=== PATIENT | male | born 1945 | race Caucasian/White ===

== ENCOUNTER 2023-02-13 10:52 | Outpatient (AMB) | payer BC, SELFPAY ==
--- NOTE | 2023-02-13 10:54 | A.OFFVIS_ITS ---
Intake Vital Signs 02/13/23 10:56 Height 5 ft 11 in Weight 190 lb 8 oz BMI 26.6 BP 142/84 H Blood Pressure Location Rt brachial Position Sitting Pulse 71 Pulse Source Pulse Oximeter Pulse Oximetry (%) 97 Oxygen Delivery Method Room Air Intake Visit Reasons: CKD/Confirmed Intake Note: Pt presents today in fup for CKD, no new complaints Allergies No Known Allergies Allergy (Verified 02/13/23 11:01) HPI HPI Comments History of Present Illness Details 77-year-old man with a medical history of coronary artery disease status post non-STEMI May 2011 with drug-eluting stent to LAD, chronic kidney disease, dyslipidemia, gout and chronic bronchitis. 1. CAD s/p [place] with NILDA to LAD in May 2 in [place] 2. Chronic bronchitis. 3. CKD - Baseline Cr of 1.2 4. Gout [facility] Social History (Updated 02/13/23 @ 11:05 by Madison Robles) Alcohol intake: current Patient Tobacco Use Status: Never used Tobacco Physical Exam Vital Signs: Last Vital Signs Pulse 71 02/13/23 10:56 BP 142/84 H 02/13/23 10:56 Pulse Ox 97 02/13/23 10:56 Oxygen Delivery Method Room Air 02/13/23 10:56 BMI result Body Mass Index 26.6 Results Reviewed Results Reviewed: Colonoscopy revealed numerous Tubulo villous adenoma Urine protein creatinine ratio 0.12 as of January 2023 Assessment & Plan Assessment & Plan (1) CKD (chronic kidney disease): Code(s): N18.9 - Chronic kidney disease, unspecified Plan: Bill has mild CKD. Renal function stable at baseline with a creatinine 1.2. Urine reviewed and no significant proteinuria. Goal is to slow the progression of renal disease. Continue to avoid nephrotoxic agents. He will benefit from an SGLT 2 inhibitor. (2) HTN (hypertension): Code(s): I10 - Essential (primary) hypertension Plan: Blood pressure is acceptable based on the home readings. The should stay on low-sodium diet. No changes are made to his antihypertensive regimen. Orders: Orders Blood Urea Nitrogen 6 Months N18.9 - Chronic kidney disease, unspecified Calcium 6 Months N18.9 - Chronic kidney disease, unspecified Electrolytes 6 Months N18.9 - Chronic kidney disease, unspecified Creatinine 6 Months N18.9 - Chronic kidney disease, unspecified Coding Level of Care Code Est Pt Level 4 (32142) Diagnoses CKD (chronic kidney disease) N18.9 HTN (hypertension) I10
[2023-02-13 10:56] VITALS: BP 142/84; PULSE 71; O2SAT 97; BMI 26.6
== END 2023-02-13 11:21 | disposition home or self-care (01) ==
LOC: HO.HKAS 10:52
PROVIDERS: Visit Provider Internal Medicine Hypertension Specialist
DX: I12.9 Hypertensive chronic kidney disease with stage 1 through stage 4 chronic kidney disease, or unspecified chronic kidney disease (principal); N18.2 Chronic kidney disease, stage 2 (mild); M10.30 Gout due to renal impairment, unspecified site
CPT/HCPCS: 99214

== ENCOUNTER → 2023-02-13 10:52 | Outpatient (BNVA) | payer BC, SELFPAY | PROVIDERS: Visit Provider Internal Medicine Hypertension Specialist ==

== ENCOUNTER 2023-08-14 11:10 | Outpatient (AMB) | payer BC, SELFPAY ==
[2023-08-14 11:11] VITALS: BP 152/88; PULSE 68; O2SAT 96; BMI 27.6
--- NOTE | 2023-08-14 11:11 | HO.NEPHOV ---
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 1. CAD s/p [place] NILDA to LAD in May 2011 in [place] 2. Chronic bronchitis. 3. CKD - Baseline Cr of 1.2 4. Gout PFSH Social History Alcohol intake: current Patient Tobacco Use Status: Never used Tobacco Physical Exam Vital Signs: Last Vital Signs Pulse 68 08/14/23 11:11 BP 152/88 H 08/14/23 11:11 Pulse Ox 96 08/14/23 11:11 Oxygen Delivery Method Room Air 08/14/23 11:11 BMI result Body Mass Index 27.6 Const General: comfortable Nutritional Appearance: well nourished Orientation/consciousness: patient oriented x3 HEENT Head: No normal to inspection Mouth: moist mucous membranes Neck Neck: Yes supple and Yes no JVD Resp Auscultation: clear to auscultation bilaterally, no rales and rub present Cardio Jugular venous distension: no JVD Palpation: no palpable S3 and no palpable S4 Heart sounds: no rubs GI Palpation (GI): Soft to palpation and nontender Percussion: No Fluid wave present General: Yes no CVA tenderness Back/Spine/Pelvis Back: no CVA tenderness Skin General skin exam: no rashes or lesions noted Neuro General: patient oriented x3 Extrem General: Yes no pedal edema and No clubbing Results Reviewed Nephrology Results: No Data to Display Assessment & Plan Assessment & Plan (1) CKD (chronic kidney disease): Code(s): N18.9 - Chronic kidney disease, unspecified Category: Medical Plan: 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 Goal is to slow the progression of renal disease. Continue to avoid nephrotoxic agents. He will benefit from an SGLT 2 inhibitor. Maintain BP < 130/80 Stay on low salt diet (2) HTN (hypertension): Code(s): I10 - Essential (primary) hypertension Category: Medical Plan: Blood pressure is acceptable based on the home readings. The should stay on low-sodium diet. No changes are made to his antihypertensive regimen. Orders: Orders Basic Metabolic Panel 5 Months I10 - Essential (primary) hypertension, N18.9 - Chronic kidney disease, unspecified Complete Blood Count Auto Diff 5 Months I10 - Essential (primary) hypertension, N18.30 - Chronic kidney disease, stage 3 unspecified, N18.9 - Chronic kidney disease, unspecified Sodium Urine Random 5 Months I10 - Essential (primary) hypertension, N18.9 - Chronic kidney disease, unspecified Creatinine Urine 5 Months I10 - Essential (primary) hypertension, N05.9 - Unspecified nephritic syndrome with unspecified morphologic changes, N18.9 - Chronic kidney disease, unspecified Coding Level of Care Code Est Pt Level 4 (11252) Diagnoses CKD (chronic kidney disease) N18.9 HTN (hypertension) I10
[2023-08-14 11:24] VITALS: BP 136/80
== END 2023-08-14 11:32 | disposition home or self-care (01) ==
PROVIDERS: Visit Provider Internal Medicine Hypertension Specialist
DX: I12.9 Hypertensive chronic kidney disease with stage 1 through stage 4 chronic kidney disease, or unspecified chronic kidney disease (principal); N18.9 Chronic kidney disease, unspecified
CPT/HCPCS: 99214

== ENCOUNTER → 2023-08-14 11:10 | Outpatient (BNVA) | payer BC, SELFPAY | PROVIDERS: Visit Provider Internal Medicine Hypertension Specialist | DX: N18.9 Chronic kidney disease, unspecified (principal) ==

== ENCOUNTER 2024-02-19 09:45 | Outpatient (AMB) | payer BC, SELFPAY ==
[2024-02-19 09:50] VITALS: BP 134/70; PULSE 59; O2SAT 95; BMI 25.7
--- NOTE | 2024-02-19 09:50 | HO.NEPHOV_ITS ---
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: No Accompanied by: Self / Same As Patient Allergies No Known Allergies Allergy (Verified 02/19/24 09:53) Medication List - Last Reconciled 02/19/24 by Howie Louis MD albuterol sulfate 90 mcg/actuation 1 inh inhalation QID allopurinol 100 mg PO DAILY aspirin 81 mg PO DAILY atorvastatin 20 mg PO DAILY fluticasone propion-salmeterol 250-50 mcg/dose (Wixela Inhub) 1 inh inhalation BID losartan 25 mg PO DAILY metoprolol succinate ER 50 mg PO DAILY HPI Comments Details: 77-year-old man with a medical history of coronary artery disease status post non-STEMI May 2011 with drug-eluting stent to LAD, chronic kidney disease, dyslipidemia, gout and chronic bronchitis. 1. [place]p [place] to LAD in May 2011 in [place] 2. Chronic bronchitis. 3. CKD - Baseline Cr of 1.2 4. Gout Overall doing good without any significant complaints. No urinary symptoms. No edema. [facility] Social History Alcohol intake: current Patient Tobacco Use Status: Never used Tobacco Physical Exam Vital Signs: Last Vital Signs Pulse 59 02/19/24 09:50 BP 134/70 02/19/24 09:50 Pulse Ox 95 02/19/24 09:50 Oxygen Delivery Method Room Air 02/19/24 09:50 BMI result Body Mass Index 25.7 Const General: comfortable Nutritional Appearance: well nourished Orientation/consciousness: patient oriented x3 HEENT Head: No normal to inspection Mouth: moist mucous membranes Neck Neck: Yes supple and Yes no JVD Resp Auscultation: clear to auscultation bilaterally, no rales and rub present Cardio Jugular venous distension: no JVD Palpation: no palpable S3 and no palpable S4 Heart sounds: no rubs GI Palpation (GI): Soft to palpation and nontender Percussion: No Fluid wave present General: Yes no CVA tenderness Back/Spine/Pelvis Back: no CVA tenderness Skin General skin exam: no rashes or lesions noted Neuro General: patient oriented x3 Extrem General: Yes no pedal edema and No clubbing Results Reviewed Results Reviewed: 01/19/2024 Creatinine 1.34 Nephrology Results: No Data to Display Assessment & Plan Assessment & Plan (1) CKD (chronic kidney disease): Code(s): N18.9 - Chronic kidney disease, unspecified Category: Medical Plan: 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 Goal is to slow the progression of renal disease. Continue to avoid nephrotoxic agents. He will benefit from an SGLT 2 inhibitor. Maintain BP < 130/80 Stay on low salt diet (2) HTN (hypertension): Code(s): I10 - Essential (primary) hypertension Category: Medical Plan: Blood pressure is acceptable based on the home readings. The should stay on low-sodium diet. No changes are made to his antihypertensive regimen. Orders: Orders Basic Metabolic Panel 9 Months I10 - Essential (primary) hypertension, N18.9 - Chronic kidney disease, unspecified Complete Blood Count no Diff 9 Months I10 - Essential (primary) hypertension, N18.9 - Chronic kidney disease, unspecified Uric Acid 9 Months I10 - Essential (primary) hypertension, N18.9 - Chronic kidney disease, unspecified UA and rflx microscopic 9 Months I10 - Essential (primary) hypertension, N18.9 - Chronic kidney disease, unspecified Medications: New allopurinol 100 mg PO DAILY 90 tabs 3RF Coding Level of Care Code Est Pt Level 4 (80035) Diagnoses CKD (chronic kidney disease) N18.9 HTN (hypertension) I10
== END 2024-02-19 10:04 | disposition home or self-care (01) ==
PROVIDERS: Visit Provider Internal Medicine Hypertension Specialist
DX: I12.9 Hypertensive chronic kidney disease with stage 1 through stage 4 chronic kidney disease, or unspecified chronic kidney disease (principal); N18.2 Chronic kidney disease, stage 2 (mild)
CPT/HCPCS: 99214

== ENCOUNTER 2024-09-09 10:39 | Outpatient (AMB) | payer BC, SELFPAY ==
[2024-09-09 10:41] VITALS: BP 128/80; PULSE 65; O2SAT 94; BMI 25.7
--- NOTE | 2024-09-09 10:41 | HO.NEPHOV_ITS ---
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 Required: No Accompanied by: Self / Same As Patient Allergies No Known Allergies Allergy (Verified 09/09/24 10:43) Medication List - Last Reconciled 09/09/24 by Howie Louis MD albuterol sulfate 90 mcg/actuation 1 inh inhalation QID allopurinol 100 mg PO DAILY aspirin 81 mg PO DAILY atorvastatin 20 mg PO DAILY dapagliflozin propanediol 5 mg PO DAILY fluticasone propion-salmeterol 250-50 mcg/dose (Wixela Inhub) 1 inh inhalation BID losartan 25 mg PO DAILY metoprolol succinate ER 50 mg PO DAILY HPI Comments Details: 77-year-old man with a medical history of coronary artery disease status post non-STEMI May 2011 with drug-eluting stent to LAD, chronic kidney disease, dyslipidemia, gout and chronic bronchitis. 1. CAD s[place]p [place] to LAD in May 2011 in [place] 2. Chronic bronchitis. 3. CKD - Baseline Cr of 1.2 4. Gout Overall doing good without any significant complaints. No urinary symptoms. No edema. 09/09/24 79-year-old male presenting with a follow-up consultation for chronic kidney disease management. His renal function shows improvement, increasing from 54% to 58% over six months. He also has Type 2 Diabetes Mellitus with recent medication adjustment adding Farxiga to enhance glycemic control and offer renal benefits. In addition, the patient has COPD and noted an increase in coughing due to inhaler use, which he intends to address with his [place] doctor this coming January. His medication regimen includes Allopurinol for gout and Losartan for hypertension, with apparent good compliance and satisfactory outcomes. The patient has decreased alcohol intake, limiting himself to one drink per week, There are no reported issues with urination despite a noted increase in frequency explained by his medication/Farxiga. [facility] Social History Alcohol intake: current Patient Tobacco Use Status: Never used Tobacco Physical Exam Vital Signs: Last Vital Signs Pulse 65 09/09/24 10:41 BP 128/80 09/09/24 10:41 Pulse Ox 94 09/09/24 10:41 Oxygen Delivery Method Room Air 09/09/24 10:41 BMI result Body Mass Index 25.7 Const General: comfortable Nutritional Appearance: well nourished Orientation/consciousness: patient oriented x3 HEENT Head: No normal to inspection Mouth: moist mucous membranes Neck Neck: Yes supple and Yes no JVD Resp Auscultation: clear to auscultation bilaterally, no rales and rub present Cardio Jugular venous distension: no JVD Palpation: no palpable S3 and no palpable S4 Heart sounds: no rubs GI Palpation (GI): Soft to palpation and nontender Percussion: No Fluid wave present General: Yes no CVA tenderness Back/Spine/Pelvis Back: no CVA tenderness Skin General skin exam: no rashes or lesions noted Neuro General: patient oriented x3 Extrem General: Yes no pedal edema and No clubbing Results Reviewed Results Reviewed: July 2024 BUN 17 Cr 1.27 Nephrology Results: No Data to Display Assessment & Plan Assessment & Plan (1) CKD (chronic kidney disease): Code(s): N18.9 - Chronic kidney disease, unspecified Category: Medical Plan: 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 Goal is to slow the progression of renal disease. Continue to avoid nephrotoxic agents. Agree with SGLT 2 inhibitor. Maintain BP < 130/80 Stay on low salt diet (2) HTN (hypertension): Code(s): I10 - Essential (primary) hypertension Category: Medical Plan: Blood pressure is acceptable based on the home readings. The should stay on low-sodium diet. No changes are made to his antihypertensive regimen. Orders: Orders Basic Metabolic Panel 6 Months N18.9 - Chronic kidney disease, unspecified Coding Level of Care Code Est Pt Level 4 (67618) Diagnoses CKD (chronic kidney disease) N18.9 HTN (hypertension) I10
--- OUTSIDE RECORDS SUMMARY | 2024-09-09 12:07 | XMS_ITS | Continuity of Care Document ---
Author Name [facility] Organization [facility] Care Team Providers Care Therapeutic Program Worker Name Role Phone [facility] Unavailable Unavailable Problems Combined list of problems from Department of Defense and Veterans Affairs facilities. It does not include entries that were removed or entered in error. 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 [facility] Diagnosis: ICD-10-CM H40.013 Open angle with borderline findings, low risk, bilateral Active Diagnosis [facility] Diagnosis: ICD-10-CM E11.9 Type 2 diabetes mellitus without complications Active Diagnosis [facility] Diagnosis: ICD-10-CM J18.9 Pneumonia, unspecified organism Active Diagnosis [facility] Diagnosis: ICD-10-CM K63.5 Polyp of colon Active Diagnosis [facility] Medications Combined list of outpatient medications from Department of Defense and Veterans Affairs facilities.Medications provided include 1) outpatient medications from the last 15 months, and 2) patient-reported medications. Medication Details Route Status Patient Instructions Prescription Expires Prescription Number Last Dispense Date Ordering Provider Order Date Order Qty Source ALBUTEROL 90MCG/ACTUA T (CFC-F) INHL,ORAL,8 .5GM DOSE COUNTER INHALE 2 PUFFS BY MOUTH FOUR TIMES A DAY RESPIR ATORY (INHAL ATION) ACTIVE 02/18/2025 [id number] MERNA JACOME 2023 1 [facility] ALLOPURINOL 100MG TAB TAKE ONE TABLET BY MOUTH ONCE DAILY FOR GOUT ORAL 02/19/2024 [id number] 4 MERNA JACOME 2022 90 [facility] ASPIRIN 81MG TAB,EC TAKE ONE TABLET BY MOUTH DAILY ORAL ACTIVE MERNA JACOME 2013 [facility] ATORVASTATI N CA 80MG TAB TAKE ONE TABLET BY MOUTH DAILY ORAL ACTIVE [place] FOST[place] 2013 [facility] CODEINE 10MG/GUAIFE NESIN 100MG/5ML (SF & AF) LIQUID TAKE 5 ML (1 TEASPOON FUL) BY MOUTH EVERY 6 HOURS NEEDED FOR COUGH ORAL 06/11/2024 [id number] LEVY MONDRAGON 2024 236 [facility] DOXYCYCLINE HYCLATE 100MG TAB TAKE ONE TABLET BY MOUTH TWICE DAILY ORAL 06/11/2024 [id number] LEVY MONDRAGON 2024 20 [facility] FLUTICASONE 250MCG/SALM ETEROL 50MCG INHL,ORAL,D ISKUS,60 INHALE 1 PUFF BY MOUTH TWICE DAILY - RINSE MOUTH AFTER USE (DOSE ADJUSTME NT MAY BE NEEDED IF YOU DEVELOP WORSENIN G BREATHIN G SYMPTOMS . CONTACT YOUR PROVIDER ) RESPIR ATORY (INHAL ATION) ACTIVE 02/18/2025 [id number] MERNA JACOME 2023 3 [facility] FLUTICASONE 250MCG/SALM ETEROL 50MCG INHL,ORAL,D ISKUS,60 INHALE 1 PUFF BY MOUTH TWICE DAILY - RINSE MOUTH AFTER USE (DOSE ADJUSTME NT MAY BE NEEDED IF YOU DEVELOP WORSENIN G BREATHIN G SYMPTOMS . CONTACT YOUR PROVIDER ) [facility] [id number] NAAMERNA Uriel 2023 3 [facility] FLUTICASONE 250MCG/SALM ETEROL 50MCG INHL,ORAL,D ISKUS,60 INHALE 1 PUFF BY MOUTH TWICE DAILY - RINSE MOUTH AFTER USE (REPLACE S SYMBICOR T INHALER. DOSE ADJUSTME NT MAY BE NEEDED IF YOU DEVELOP WORSENIN G BREATHIN G SYMPTOMS . CONTACT YOUR PROVIDER ) RESPIR AT[facility]) [facility] 02/19[facility]2024 [id number] NAAMERNA Uriel 2022 3 [facility] LOSARTAN 25MG TAB TAKE ONE TABLET BY MOUTH ONCE DAILY ORAL ACTIVE [facility]NA JACOME 2018 [facility] METOPROLOL TARTRATE 50MG TAB TAKE ONE TABLET BY MOUTH ONCE DAILY ORAL ACTIVE MERNA JACOME 2021 [facility] NITROGLYCER IN 0.4MG TAB,SUBLING UAL DISSOLVE ONE TABLET UNDER THE TONGUE EVERY 5 MINUTES NEEDED SUBLIN GUAL ACTIVE RA[place]B,[place]B [place] 2013 [facility] Immunizations Combined list of available immunizations from the Department of Defense and Veterans Affairs facilities. Immunization Series Date Given Administered By Site Reaction Lot Number CVX Code Drug Public Records Officer Status Comments Source INFLUENZA, HIGH-DOSE, TRIVALENT, PF 2023 WONG MERAZ RIGHT DELTO ID [id number] 135 complet ed Completed Series, [facility] INFLUENZA, UNSPECIFIED FORMULATION 2022 88 complet ed Booster for Series, HISTORICA L INFORMATI ON - FROM OTHER PROVIDER, [facility] COVID-19 (MODERNA), MRNA, LNP-S, BIVALENT BOOSTER, PF, 50 MCG/0.5 ML OR 25MCG/0.25 ML DOSE 1 2021 MURPHY SHIELDS LEFT DELTO ID [id number] 229 complet ed ADMINISTE RED AT HI, [facility] INFLUENZA VACCINE, QUADRIVALENT, ADJUVANTED 2021 205 complet ed [facility] INFLUENZA VACCINE, QUADRIVALENT, ADJUVANTED 2020 205 complet ed [facility] ZOSTER RECOMBINANT 2 2020 187 complet ed [facility] ZOSTER RECOMBINANT 1 2020 187 complet ed [facility] COVID-19 (DARYN), VECTOR-NR, [id number], PF, 0.5 ML 1 2020 212 complet ed [facility] INFLUENZA, SEASONAL, INJECTABLE 2018 141 complet ed cVS [facility] INFLUENZA, SEASONAL, INJECTABLE 2018 141 complet ed [facility] PNEUMOCOCCAL POLYSACCHARID E PPV23 2017 33 complet ed [facility] INFLUENZA, SEASONAL, INJECTABLE 2016 141 complet ed CVS FLA [facility] PNEUMOCOCCAL CONJUGATE PCV 13 2016 133 complet ed [facility] TDAP 2016 115 complet ed Site: Left Deltoid [facility] FLU,3 YRS (HISTORICAL) 2016 88 complet ed [facility] ZOSTER (HISTORICAL) 2016 121 complet ed [facility] FLU,3 YRS (HISTORICAL) 2014 88 complet ed Site: Right Deltoid [facility] FLU,3 YRS (HISTORICAL) 2012 88 complet ed [facility] Results Combined list of recent chemistry, hematology and other laboratory results from Department of Defense and Veterans Affairs, ranging from 15 months to all on record, depending upon the facility. Order Name Results Value Reference Range Date Interpretation Specimen Comments Source COVID-19 FLU/RSV DIAGNOST IC PANEL SARS-COV-2 (COVID-19) RNA [PRESENCE] IN RESPIRATOR Y SYSTEM SPECIMEN BY OTTO WITH PROBE DETECTION NEGATIVE 05/12 Specimen Type: NASOPHARYNX Comment: This test is authorized for emergency use only. False negative results may occur if virus is present at levels below the analytical limit of detection.N egative results do not preclude SARS-CoV-2, influenza or RSV infection and should not be used as the sole basis for treatment or other patient management decisions.C epheid FLUVID: HCPs: https://www .fda.gov/me tahmina/702048/ download. Patients: https://www .fda.gov/me tahmina/246000/ download Ordering Provider: JORDYN MONDRAGON Report Released Date/Time: May 12, 2024 10:04 AM Reporting Lab: [address] [address] Performing Lab: [address] [address] [facility] COVID-19 FLU/RSV DIAGNOST IC PANEL FLU A PCR (FLUVID) NEGATIVE 05/12 Specimen Type: NASOPHARYNX Comment: This test is authorized for emergency use only. False negative results may occur if virus is present at levels below the analytical limit of detection.N egative results do not preclude SARS-CoV-2, influenza or RSV infection and should not be used as the sole basis for treatment or other patient management decisions.C epheid FLUVID: HCPs: https://www .fda.gov/me tahmina/541005/ download. Patients: https://www .fda.gov/me tahmina/924331/ download Ordering Provider: JORDYN MONDRAGON Report Released Date/Time: May 12, 2024 10:04 AM Reporting Lab: [facility] [address] [facility] [address] Performing Lab: [address] [address] [facility] COVID-19 FLU/RSV DIAGNOST IC PANEL FLU B PCR (FLUVID) NEGATIVE 05/12 Specimen Type: NASOPHARYNX Comment: This test is authorized for emergency use only. False negative results may occur if virus is present at levels below the analytical limit of detection.N egative results do not preclude SARS-CoV-2, influenza or RSV infection and should not be used as the sole basis for treatment or other patient management decisions.C epheid FLUVID: HCPs: https://www .fda.gov/dc tahmina/210559/ download. Patients: https://www .fda.gov/dc tahmina/203614/ download Ordering Provider: JORDYN MONDRAGON Report Released Date/Time: May 12, 2024 10:04 AM Reporting Lab: [address] [address] Performing Lab: [address] [address] [facility] COVID-19 FLU/RSV DIAGNOST IC PANEL RSV PCR (FLUVID) NEGATIVE 05/12 Specimen Type: NASOPHARYNX Comment: This test is authorized for emergency use only. False negative results may occur if virus is present at levels below the analytical limit of detection.N egative results do not preclude SARS-CoV-2, influenza or RSV infection and should not be used as the sole basis for treatment or other patient management decisions.C epheid FLUVID: HCPs: https://www .fda.gov/me tahmina/667195/ download. Patients: https://www .fda.gov/dc tahmina/387167/ download Ordering Provider: JORDYN MONDRAGON Report Released Date/Time: May 12, 2024 10:04 AM Reporting Lab: [address] [address] Performing Lab: [facility] [address] [address] [facility] MICROALB UMIN CREATINI NE RATIO PANEL MICROALBUM IN/CREATIN INE [MASS RATIO] IN URINE cancmg/g 0 - 29.9 02/12 Specimen Type: URINE No comment entered. Ordering Provider: Meir JACOME Report Released Date/Time: Feb 18, 2023 10:44 AM Reporting Lab: [facility] [address] [facility] [address] Performing Lab: [facility] [place] [facility] [address] [facility] [address] [facility] MICROALB UMIN CREATINI NE RATIO PANEL MICROALBUM IN [MASS/VOLU ME] IN URINE < 0.5mg/dL 02/12 Specimen Type: URINE No comment entered. Ordering Provider: Meir JACOME Report Released Date/Time: Feb 18, 2023 10:44 AM Reporting Lab: [facility] [address] [facility] [address] Performing Lab: [facility] [address] [facility] [address] [facility] MICROALB UMIN CREATINI NE RATIO PANEL CREATININE [MASS/VOLU ME] IN URINE 70.93 mg/dL 02/12 Specimen Type: URINE No comment entered. Ordering Provider: Meir JACOME Report Released Date/Time: Feb 18, 2023 10:44 AM Reporting Lab: [facility] [address] [facility] [address] Performing Lab: [facility] [facility] [address] [address] [facility] BASIC METABOLI C PANEL (fasting ) UREA NITROGEN [MASS/VOLU ME] IN SERUM OR PLASMA 22 mg/dL 7 - 25 02/12 Specimen Type: SERUM No comment entered. Ordering Provider: Meir JACOME Report Released Date/Time: Feb 18, 2023 10:44 AM Reporting Lab: [facility] [address] [facility] [facility] [address] Performing Lab: [facility] [facility] [address] [facility] [address] [facility] BASIC METABOLI C PANEL (fasting ) GLUCOSE [MASS/VOLU ME] IN SERUM OR PLASMA 144 mg/dL 65 - 100 02/12 H Specimen Type: SERUM No comment entered. Ordering Provider: Meir JACOME Report Released Date/Time: Feb 18, 2023 10:44 AM Reporting Lab: [facility] [address] [facility] [facility] [address] Performing Lab: [facility] [address] [facility] [address] [facility] BASIC METABOLI C PANEL (fasting ) SODIUM [MOLES/VOL UME] IN SERUM OR PLASMA 139 mmol/L 135 - 145 02/12 Specimen Type: SERUM No comment entered. Ordering Provider: Meir JACOME Report Released Date/Time: Feb 18, 2023 10:44 AM Reporting Lab: [facility] [address] [facility] [facility] [address] Performing Lab: [facility] [facility] [address] [facility] [address] [facility] BASIC METABOLI C PANEL (fasting ) POTASSIUM [MOLES/VOL UME] IN SERUM OR PLASMA 4.9 mmol/L 3.5 - 5.0 02/12 Specimen Type: SERUM No comment entered. Ordering Provider: Meir JACOME Report Released Date/Time: Feb 18, 2023 10:44 AM Reporting Lab: [facility] [facility] [address] [facility] [address] Performing Lab: [facility] [place] [facility] [address] [facility] [facility] [address] [facility] BASIC METABOLI C PANEL (fasting ) CHLORIDE [MOLES/VOL UME] IN SERUM OR PLASMA 103 mmol/L 100 - 110 02/12 Specimen Type: SERUM No comment entered. Ordering Provider: Meir JACOME Report Released Date/Time: Feb 18, 2023 10:44 AM Reporting Lab: [facility] [address] Performing Lab: [facility]TRN [facility] [address] [facility] BASIC METABOLI C PANEL (fasting ) CARBON DIOXIDE, TOTAL [MOLES/VOL UME] IN SERUM OR PLASMA 26 meq/L 20 - 30 02/12 Specimen Type: SERUM No comment entered. Ordering Provider: Meir JACOME Report Released Date/Time: Feb 18, 2023 10:44 AM Reporting Lab: [facility]ITALN [address] [address] Performing Lab: [facility]TRN [facility]USE[address] [address] [facility] BASIC METABOLI C PANEL (fasting ) CREATININE [MASS/VOLU ME] IN SERUM OR PLASMA 1.38 mg/dL 0.50 - 1.40 02/12 Specimen Type: SERUM No comment entered. Ordering Provider: Meir JACOME Report Released Date/Time: Feb 18, 2023 10:44 AM Reporting Lab: [facility] TRN [facility] [address] Performing Lab: [facility] TRN [facility] [address] [facility]N [facility] BASIC METABOLI C PANEL (fasting ) GLOMERULAR FILTRATION RATE/1.73 SQ M.PREDICTE D [VOLUME RATE/AREA] IN SERUM, PLASMA OR BLOOD BY CREATININE -BASED FORMULA (CKD-EPI 2020) 52 mL/min 60 02/12 L Specimen Type: SERUM No comment entered. Ordering Provider: Meir JACOME Report Released Date/Time: Feb 18, 2023 10:44 AM Reporting Lab: [facility] [address] [facility] [address] Performing Lab: [facility] [address] [facility] [address] [facility] LIVER FUNCTION PROTEIN [MASS/VOLU ME] IN SERUM OR PLASMA 6.8 g/dL 6.0 - 8.3 02/12 Specimen Type: SERUM No comment entered. Ordering Provider: Meir JACOME Report Released Date/Time: Feb 18, 2023 10:44 AM Reporting Lab: [facility] [address] [facility] [address] Performing Lab: [facility] [place] [facility] [address] [facility] [address] [facility] LIVER FUNCTION ALBUMIN [MASS/VOLU ME] IN SERUM OR PLASMA 3.8 g/dL 3.5 - 5.0 02/12 Specimen Type: SERUM No comment entered. Ordering Provider: Meir JACOME Report Released Date/Time: Feb 18, 2023 10:44 AM Reporting Lab: [facility] [address] [facility] [address] Performing Lab: [facility] [place] [facility] [address] [facility] [address] [facility] LIVER FUNCTION ALKALINE PHOSPHATAS E [ENZYMATIC ACTIVITY/V OLUME] IN SERUM OR PLASMA 63 U/L 40 - 150 02/12 Specimen Type: SERUM No comment entered. Ordering Provider: Meir JACOME Report Released Date/Time: Feb 18, 2023 10:44 AM Reporting Lab: [facility] [address] [facility] [address] Performing Lab: [facility] [address] [facility] [address] [facility] LIVER FUNCTION ASPARTATE AMINOTRANS FERASE [ENZYMATIC ACTIVITY/V OLUME] IN SERUM OR PLASMA 18 U/L 5 - 34 02/12 Specimen Type: SERUM No comment entered. Ordering Provider: Meir JACOME Report Released Date/Time: Feb 18, 2023 10:44 AM Reporting Lab: [facility] [place] [facility] [address] [facility] [address] Performing Lab: [facility] [facility] [address] [facility] [address] [facility] LIVER FUNCTION ALANINE AMINOTRANS FERASE [ENZYMATIC ACTIVITY/V OLUME] IN SERUM OR PLASMA 22 U/L 02/12 Specimen Type: SERUM No comment entered. Ordering Provider: Meir JACOME Report Released Date/Time: Feb 18, 2023 10:44 AM Reporting Lab: [facility] [address] [address] Performing Lab: [facility] [place] [facility] [address] [facility] [address] [facility] LIVER FUNCTION BILIRUBIN. TOTAL [MASS/VOLU ME] IN SERUM OR PLASMA 0.8 mg/dL 0.2 - 1.2 02/12 Specimen Type: SERUM No comment entered. Ordering Provider: Meir JACOME Report Released Date/Time: Feb 18, 2023 10:44 AM Reporting Lab: [facility] [address] [address] Performing Lab: [facility] [place] [facility] [address] [facility] [address] [facility] LIPID PANEL FASTING CHOLESTERO L [MASS/VOLU ME] IN SERUM OR PLASMA 127 mg/dL 02/12 Specimen Type: SERUM No comment entered. Ordering Provider: Meir JACOME Report Released Date/Time: Feb 18, 2023 10:44 AM Reporting Lab: [facility] [place] [facility] [address] [facility] [address] Performing Lab: [facility] [place] [facility] [address] [facility] [address] [facility] LIPID PANEL FASTING TRIGLYCERI DE [MASS/VOLU ME] IN SERUM OR PLASMA 99 mg/dL 0 - 150 02/12 Specimen Type: SERUM No comment entered. Ordering Provider: Meir JACOME Report Released Date/Time: Feb 18, 2023 10:44 AM Reporting Lab: [facility] [place] [facility] [address] [facility] [address] Performing Lab: [facility] [place] [facility] [address] [facility] [address] [facility] LIPID PANEL FASTING CHOLESTERO L IN LDL [MASS/VOLU ME] IN SERUM OR PLASMA BY CALCULATIO N 65 mg/dL 0 - 129 02/12 Specimen Type: SERUM No comment entered. Ordering Provider: Meir JACOME Report Released Date/Time: Feb 18, 2023 10:44 AM Reporting Lab: [facility] [place] [facility] [address] [facility] [address] Performing Lab: [facility] [place] [facility] [address] [facility] [address] [facility] LIPID PANEL FASTING CHOLESTERO L.TOTAL/CH OLESTEROL IN HDL [MASS RATIO] IN SERUM OR PLASMA 3.0 02/12 Specimen Type: SERUM No comment entered. Ordering Provider: Meir JACOME Report Released Date/Time: Feb 18, 2023 10:44 AM Reporting Lab: [facility] [place] [facility] [address] [facility] [address] Performing Lab: [facility] [place] [facility] [address] [facility] [address] [facility] LIPID PANEL FASTING CHOLESTERO L IN HDL [MASS/VOLU ME] IN SERUM OR PLASMA 42 mg/dL 40 - 60 02/12 Specimen Type: SERUM No comment entered. Ordering Provider: Meir JACOME Report Released Date/Time: Feb 18, 2023 10:44 AM Reporting Lab: [facility] [place] [facility] [address] [facility] [address] Performing Lab: [facility] CNTRPRINCETON B[facility]IST [facility]ENTERTRN [facility]PITALUSETS [facility] [address] [facility] [address] [facility] HEMOGLOB IN A1C PANEL HEMOGLOBIN A1C/HEMOGL OBIN.TOTAL IN BLOOD BY HPLC 6.5 4.0 - 5.6 02/12 H Specimen Type: BLOOD Comment: Values obtained from A1C measurement s can vary. For atypical A1C assays, a reported value of 7.0 could actually be between 6.72 and 7.28 if measured by a reference method. A reported value of 9.0 could actually be between 8.73 and 9.27. Ref: http://www. ngsp.org/[place] Pdata.asp Ordering Provider: Meir JACOME Report Released Date/Time: Feb 18, 2023 10:44 AM Reporting Lab: [facility]ITALRST[facility]ITALN [facility] [address] Performing Lab: [facility]ITALRPRINCETON [facility]ENTERTRN [facility]USE[address] [address] [facility]ITALUSE [facility] HEMOGLOB IN A1C PANEL HEMOGLOBIN A1C/HEMOGL OBIN.TOTAL IN BLOOD BY HPLC 6.9 4.0 - 5.6 05/15 H Specimen Type: BLOOD Comment: Values obtained from A1C measurement s can vary. For atypical A1C assays, a reported value of 7.0 could actually be between 6.72 and 7.28 if measured by a reference method. A reported value of 9.0 could actually be between 8.73 and 9.27. Ref: http://www. ngsp.org/[place] Pdata.asp Ordering Provider: Meir JACOME Report Released Date/Time: Feb 18, 2023 10:44 AM Reporting Lab: [facility]ITALRPRINCETON B[facility]ENTERTRN [facility] [address] [facility] [address] Performing Lab: [facility]ITALRPRINCETON [facility] CENTERTRN [facility]USE[address] [address] [facility]ITALRST[facility] VINCENT'[facility]OSPITALN [facility]ITALUSE [facility] LIVER FUNCTION PROTEIN [MASS/VOLU ME] IN SERUM OR PLASMA 7.2 g/dL 6.0 - 8.3 05/15 Specimen Type: SERUM No comment entered. Ordering Provider: Meir JACOME Report Released Date/Time: Feb 18, 2023 10:44 AM Reporting Lab: [facility] [place] [facility] [address] [facility] [address] Performing Lab: [facility] [place] [facility] [address] [facility] [address] [facility] [place] [facility] LIVER FUNCTION ALBUMIN [MASS/VOLU ME] IN SERUM OR PLASMA 3.9 g/dL 3.5 - 5.0 05/15 Specimen Type: SERUM No comment entered. Ordering Provider: Meir JACOME Report Released Date/Time: Feb 18, 2023 10:44 AM Reporting Lab: [facility] [place] [address] [address] Performing Lab: [facility] [place] [facility] [address] [facility] [address] [facility] [place] [facility] LIVER FUNCTION ALKALINE PHOSPHATAS E [ENZYMATIC ACTIVITY/V OLUME] IN SERUM OR PLASMA 67 U/L 40 - 150 05/15 Specimen Type: SERUM No comment entered. Ordering Provider: Meir JACOME Report Released Date/Time: Feb 18, 2023 10:44 AM Reporting Lab: [facility] [place] [address] [address] Performing Lab: [facility] [place] [facility] [address] [facility] [address] [facility] [place] [facility] LIVER FUNCTION ASPARTATE AMINOTRANS FERASE [ENZYMATIC ACTIVITY/V OLUME] IN SERUM OR PLASMA 17 U/L 5 - 34 05/15 Specimen Type: SERUM No comment entered. Ordering Provider: Meir JACOME Report Released Date/Time: Feb 18, 2023 10:44 AM Reporting Lab: [facility] [place] [address] [address] Performing Lab: [facility] [place] [address] [address] [facility] [place] [facility] LIVER FUNCTION ALANINE AMINOTRANS FERASE [ENZYMATIC ACTIVITY/V OLUME] IN SERUM OR PLASMA 22 U/L 05/15 Specimen Type: SERUM No comment entered. Ordering Provider: Meir JACOME Report Released Date/Time: Feb 18, 2023 10:44 AM Reporting Lab: [facility] [place] [facility] [address] [facility] [address] Performing Lab: [facility] [place] [facility] [address] [address] [facility] [place] [facility] LIVER FUNCTION BILIRUBIN. TOTAL [MASS/VOLU ME] IN SERUM OR PLASMA 0.9 mg/dL 0.2 - 1.2 05/15 Specimen Type: SERUM No comment entered. Ordering Provider: Meir JACOME Report Released Date/Time: Feb 18, 2023 10:44 AM Reporting Lab: [facility] [place] [facility] [address] [facility] [address] Performing Lab: [facility] [place] [facility] [address] [facility] [address] [facility] [place] [facility] BASIC METABOLI C PANEL (fasting ) UREA NITROGEN [MASS/VOLU ME] IN SERUM OR PLASMA 22 mg/dL 7 - 25 05/15 Specimen Type: SERUM No comment entered. Ordering Provider: Meir JACOME Report Released Date/Time: Feb 18, 2023 10:44 AM Reporting Lab: [facility] [place] [facility] [address] [facility] [address] Performing Lab: [facility] [place] [facility] [address] [facility] [address] [facility] [place] [facility] BASIC METABOLI C PANEL (fasting ) GLUCOSE [MASS/VOLU ME] IN SERUM OR PLASMA 159 mg/dL 65 - 100 05/15 H Specimen Type: SERUM No comment entered. Ordering Provider: Meir JACOME Report Released Date/Time: Feb 18, 2023 10:44 AM Reporting Lab: [facility] [place] [facility] [address] [address] Performing Lab: [facility] [place] [facility] [address] [facility] [address] [facility] [place] [facility] BASIC METABOLI C PANEL (fasting ) SODIUM [MOLES/VOL UME] IN SERUM OR PLASMA 139 mmol/L 135 - 145 05/15 Specimen Type: SERUM No comment entered. Ordering Provider: Meir JACOME Report Released Date/Time: Feb 18, 2023 10:44 AM Reporting Lab: [facility] [place] [facility] [address] [facility] [address] Performing Lab: [facility] [place] [facility] [address] [facility] [address] [facility] [place] [facility] BASIC METABOLI C PANEL (fasting ) POTASSIUM [MOLES/VOL UME] IN SERUM OR PLASMA 4.6 mmol/L 3.5 - 5.0 05/15 Specimen Type: SERUM No comment entered. Ordering Provider: Meir JACOME Report Released Date/Time: Feb 18, 2023 10:44 AM Reporting Lab: [facility] [place] [facility] [address] [address] Performing Lab: [facility] [place] [facility] [address] [facility] [address] [facility] [place] [facility] BASIC METABOLI C PANEL (fasting ) CHLORIDE [MOLES/VOL UME] IN SERUM OR PLASMA 103 mmol/L 100 - 110 05/15 Specimen Type: SERUM No comment entered. Ordering Provider: Meir JACOME Report Released Date/Time: Feb 18, 2023 10:44 AM Reporting Lab: [facility] [place] [facility] [address] [address] Performing Lab: [facility] [place] [facility] [address] [facility] [address] [facility] [place] [facility] BASIC METABOLI C PANEL (fasting ) CARBON DIOXIDE, TOTAL [MOLES/VOL UME] IN SERUM OR PLASMA 28 meq/L 20 - 30 02/14 /2024 Specimen Type: SERUM No comment entered. Ordering Provider: Meir JACOME Report Released Date/Time: Feb 18, 2023 10:44 AM Reporting Lab: [facility] [place] [facility] [address] [address] Performing Lab: [facility] [address] [facility] [place] [facility] BASIC METABOLI C PANEL (fasting ) CREATININE [MASS/VOLU ME] IN SERUM OR PLASMA 1.43 mg/dL 0.50 - 1.40 05/15 H Specimen Type: SERUM No comment entered. Ordering Provider: Meir JACOME Report Released Date/Time: Feb 18, 2023 10:44 AM Reporting Lab: [facility] [address] [address] Performing Lab: [facility] [address] [facility] BASIC METABOLI C PANEL (fasting ) GLOMERULAR FILTRATION RATE/1.73 SQ M.PREDICTE D [VOLUME RATE/AREA] IN SERUM, PLASMA OR BLOOD BY CREATININE -BASED FORMULA (CKD-EPI 2020) 50 mL/min 60 05/15 L Specimen Type: SERUM No comment entered. Ordering Provider: Meir JACOME Report Released Date/Time: Feb 18, 2023 10:44 AM Reporting Lab: [facility] [address] Performing Lab: [facility] [address] [facility]ITALR[facility]ITALN [place] [facility] MICROALB UMIN CREATINI NE RATIO PANEL MICROALBUM IN/CREATIN INE [MASS RATIO] IN URINE cancmg/g 0 - 29.9 05/15 Specimen Type: URINE No comment entered. Ordering Provider: Meir JACOME Report Released Date/Time: Feb 18, 2023 10:44 AM Reporting Lab: [facility] [place] [facility] [address] [facility] [address] Performing Lab: [facility] [place] [facility] [address] [facility] [address] [facility] [place] [facility] MICROALB UMIN CREATINI NE RATIO PANEL MICROALBUM IN [MASS/VOLU ME] IN URINE < 0.5mg/dL 05/15 Specimen Type: URINE No comment entered. Ordering Provider: Meir JACOME Report Released Date/Time: Feb 18, 2023 10:44 AM Reporting Lab: [facility] [place] [facility] [address] [facility] [address] Performing Lab: [facility] [place] [facility] [address] [facility] [address] [facility] [place] [facility] MICROALB UMIN CREATINI NE RATIO PANEL CREATININE [MASS/VOLU ME] IN URINE 63.72 mg/dL 05/15 Specimen Type: URINE No comment entered. Ordering Provider: Meir JACOME Report Released Date/Time: Feb 18, 2023 10:44 AM Reporting Lab: [facility] [facility] [address] [facility] [address] Performing Lab: [facility] [place] [facility] [address] [facility] [address] [facility] [place] [facility] Vital Signs Combined list of inpatient and outpatient Vital Signs from Department of Defense and Veterans Affairs, ranging from 12 months to all on record, depending upon the facility. Vital Sign Value Date Comments Source SYSTOLIC BLOOD PRESSURE 149 05/12/19 25 09:48:05 [facility] [place] [facility] DIASTOLIC BLOOD PRESSURE 72 025 09:48:05 [facility] [place] [facility] PULSE OXIMETRY 94 05/12/2024 09:48:05 [facility] [place] [facility] WEIGHT 194 05/12/2024 09:48:05 [facility] [place] [facility] BMI 27 kg/m2 05/12/2024 09:48:05 [facility] [place] [facility] PAIN 0 05/12/2024 09:48:05 [facility] [place] [facility] TEMPERATURE 97.5 05/12/2024 09:48:05 [facility] [place] [facility] PULSE 87 05/12/2024 09:48:05 [facility] [place] [facility] RESPIRATION 20 05/12/2024 09:48:05 [facility] [place] [facility] SYSTOLIC BLOOD PRESSURE 136 02/18/20 24 09:52:18 [facility] [place] [facility] DIASTOLIC BLOOD PRESSURE 71 024 09:52:18 [facility] [place] [facility] PULSE OXIMETRY 95 02/18/2024 09:52:18 [facility] [place] [facility] WEIGHT 188 02/18/2024 09:52:18 [facility] [place] [facility] BMI 26 kg/m2 02/18/2024 09:52:18 [facility] [place] [facility] PAIN 0 02/18/2024 09:52:18 [facility] [place] [facility] TEMPERATURE 97.7 02/18/2024 09:52:18 [facility] [place] [facility] PULSE 65 02/18/2024 09:52:18 [facility] [place] [facility] RESPIRATION 16 02/18/2024 09:52:18 [facility] [place] [facility] Encounters Combined list of: 1) Encounters from Department of Veterans Affairs facilities going backup to the last 18 months, not all VA inpatient encounters are included; 2) Encounters from the Department of Defense facilities going backup to 280 months. Location Location Details Encounter Type Encounter Number Reason For Visit Attending Provider ADM Date DC Date Status Disposition Source [facility] [place] [facility] [place] 1/ [id number] Diagnos is: ICD-10- CM E11.9 Type 2 diabete s mellitu s without complic ations WINSOME SHAH B 05/15 [facility] Out[facility] Encounter [id number] Esthela ALEJANDRAAlcira Radha 11/10 [facility] [place] [place] [facility] Outpatient Encounter [id number] Esthela ALEJANDRA DIDIER Radha 12/11 [facility] [place] [place] [facility] OFFICE O/P EST LOW 20 MIN [id number] 1. Diagnos is: ICD-10- CM K63.5 Polyp of colon MERNA JACOME 02/17 [facility] [place] [place] [facility] Outpatient Encounter [id number] 05/12 [facility] [place] [place] [facility] OFFICE O/P EST MOD 30 MIN [id number] Diagnos is: ICD-10- CM J18.9 Pneumon ia, unspeci fied organis m GIANCARLO,SAMARIA ABERNATHY 05/12 [facility] [place] [place] [facility] FIT [employer] [id number] Diagnos is: ICD-10- CM E11.9 Type 2 diabete s mellitu s without complic ations ALYSSA,WINSOME H B 05/20 [facility] [place] [place] [facility] CPTRZD OPH DX IMG PST SGM ON [id number] Diagnos is: ICD-10- CM H40.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 Social History Type Response Date Comment Sourc e Tobacco smoking status NHIS VA-TOBACCO QUIT 15 YRS OR MORE 02/18/2024 [facility] [place] [facility] History of tobacco use VA-TOBACCO FORMER USER 02/18/2024 [facility] [place] [facility] History of tobacco use HI-TOBACCO FORMER USER 02/18/2023 [facility] [place] [facility] History of tobacco use HI-TOBACCO FORMER USER 12/28/2021 [facility] [place] [facility] History of tobacco use HI-TOBACCO NEVER USED 11/28/2020 [facility] [place] [facility] History of tobacco use HI-TOBACCO QUIT 15 YRS OR MORE 09/09/2019 [facility] [place] [facility] History of tobacco use HI-TOBACCO FORMER USER 08/15/2018 [facility] [place] [facility] History of tobacco use QUIT TOBACCO USE > 7 YEARS AGO 08/29/2017 40 yrs ago [facility] [place] [facility] History of tobacco use QUIT TOBACCO USE > 7 YEARS AGO 08/22/2016 [facility] [facility] History of tobacco use QUIT TOBACCO USE > 7 YEARS AGO 08/06/2013 . [facility] [place] [facility] Plan of Care List of future care activities from Department of Veterans Affairs facilities. Additional future care activities may be listed in the Assessment and Plan section. Date/Time Care Activity Care Activity Detail Facili ty 02/16/2025 AMBULATORY - MEDICINE AMBULATORY - MEDICI NE [facility] [place] [facility]
== END 2024-09-09 10:53 | disposition home or self-care (01) ==
LOC: HO.HKAS 10:40
PROVIDERS: Visit Provider Internal Medicine Hypertension Specialist
DX: I12.9 Hypertensive chronic kidney disease with stage 1 through stage 4 chronic kidney disease, or unspecified chronic kidney disease (principal); N18.9 Chronic kidney disease, unspecified
CPT/HCPCS: 99214

== ENCOUNTER → 2024-09-09 10:39 | Outpatient (BNVA) | payer BC, SELFPAY | PROVIDERS: Visit Provider Internal Medicine Hypertension Specialist ==

== ENCOUNTER 2025-03-10 09:43 | Outpatient (AMB) | payer BC, SELFPAY ==
[2025-03-10 09:59] VITALS: BP 124/70; PULSE 62; O2SAT 95; BMI 25.2
--- NOTE | 2025-03-10 09:59 | HO.NEPHOV_ITS ---
Vital Signs 03/10/25 09:59 Height 5 ft 11 in Weight 181 lb BMI 25.2 BP 124/70 Blood Pressure Location Lt brachial Position Sitting Pulse 62 Pulse Source Pulse Oximeter Pulse Oximetry (%) 95 Oxygen Delivery Method Room Air Intake Visit Reasons: f/u Classified Advertising Clerk Required: No Accompanied by: Self / Same As Patient Allergies No Known Allergies Allergy (Verified 03/10/25 10:01) Medication List - Last Reconciled 03/10/25 by Howie Louis MD albuterol sulfate 90 mcg/actuation 1 inh inhalation QID allopurinol 100 mg PO DAILY aspirin 81 mg PO DAILY atorvastatin 80 mg PO DAILY dapagliflozin propanediol 5 mg PO DAILY fluticasone propion-salmeterol 250-50 mcg/dose (Wixela Inhub) 1 inh inhalation BID losartan 25 mg PO DAILY metoprolol succinate ER 50 mg PO DAILY HPI Comments Details: 77-year-old man with a medical history of coronary artery disease status post non-STEMI May 2011 with drug-eluting stent to LAD, chronic kidney disease, dyslipidemia, gout and chronic bronchitis. 1. CAD s/p [place] with [place]ILDA to LAD in May 2011 in [place] 2. Chronic bronchitis. 3. CKD - Baseline Cr of 1.2 4. Gout Overall doing good without any significant complaints. No urinary symptoms. No edema. 09/09/24 79-year-old male presenting with a follow-up consultation for chronic kidney disease management. His renal function shows improvement, increasing from 54% to 58% over six months. He also has Type 2 Diabetes Mellitus with recent medication adjustment adding Farxiga to enhance glycemic control and offer renal benefits. In addition, the patient has COPD and noted an increase in coughing due to inhaler use, which he intends to address with his [place] doctor this coming January. His medication regimen includes Allopurinol for gout and Losartan for hypertension, with apparent good compliance and satisfactory outcomes. The patient has decreased alcohol intake, limiting himself to one drink per week, There are no reported issues with urination despite a noted increase in frequency explained by his medication/Farxiga. 03/10/25 The patient is a 80-year-old male presenting for a routine 6-month follow-up visit for chronic kidney disease. His kidney function has been stable with recent labs showing a creatinine of 1.33 mg/dL, BUN of 25 mg/dL, and potassium of 5.0 mEq/L. There has been no protein in his urine. His past medical history is significant for coronary artery disease and a myocardial infarction. He has had no hospitalizations and saw his primary doctor two months ago with no changes made to his care. The patient denies taking losartan and metoprolol but confirms he is taking Farxiga, which he associates with increased urination. He denies any other urinary difficulties or swelling in his legs. He reports consuming a couple of alcoholic drinks per week. He has a history of right arm pain diagnosed as arthritis, for which he had previously taken pain pills. For the past five months, he has been taking a supplement which he believes has led to complete resolution of his pain. [facility] Social History Alcohol intake: current Patient Tobacco Use Status: Never used Tobacco Physical Exam Vital Signs: Last Vital Signs Pulse 62 03/10/25 09:59 BP 124/70 03/10/25 09:59 Pulse Ox 95 03/10/25 09:59 Oxygen Delivery Method Room Air 03/10/25 09:59 BMI result Body Mass Index 25.2 Comfortable Neck supple no JVD. Lungs entry equal no rales. Heart S1-S2 heard no gallop or rub. Abdomen soft nontender. Neuro alert awake oriented. No asterixis. Extremities no edema. 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 Goal is to slow the progression of renal disease. Continue to avoid nephrotoxic agents. Agree with SGLT 2 inhibitor. Maintain BP < 130/80 Stay on low salt diet (2) HTN (hypertension): Code(s): I10 - Essential (primary) hypertension Category: Medical Plan: Blood pressure is acceptable based on the home readings. The should stay on low-sodium diet. No changes are made to his antihypertensive regimen. Orders: Orders Basic Metabolic Panel 6 Months I10 - Essential (primary) hypertension, N18.9 - Chronic kidney disease, unspecified Complete Blood Count no Diff 6 Months I10 - Essential (primary) hypertension, N18.9 - Chronic kidney disease, unspecified Coding Level of Care Code Est Pt Level 4 (84979) Diagnoses CKD (chronic kidney disease) N18.9 HTN (hypertension) I10
== END 2025-03-10 10:18 | disposition home or self-care (01) ==
LOC: HO.HKAS 09:44
PROVIDERS: Visit Provider Internal Medicine Hypertension Specialist
DX: I12.9 Hypertensive chronic kidney disease with stage 1 through stage 4 chronic kidney disease, or unspecified chronic kidney disease (principal); N18.9 Chronic kidney disease, unspecified
CPT/HCPCS: 99214